=== PATIENT | female | born 1960 | race Two or more races ===

== ENCOUNTER 2024-12-16 22:05 | Emergency (ER) | payer OTHER ==
[~2024-12-16] VITALS: Ht 165.1 cm; Wt 86.2 kg
[2024-12-16] MEDS ORDERED: TDAP DIPH,PERTUSS,TET VAC/PF 0.5 ML DISP.SYRIN IM ONE (23:05)
[2024-12-16] MEDS: TDAP DIPH,PERTUSS,TET VAC/PF 0.5 ML DISP.SYRIN IM ONE (23:07)
[2024-12-16] MEDS ORDERED: NEOMY/BACITRA/POLYMYXIN B OINT UD PACKET TP ONE (23:49)
[2024-12-16] MEDS ORDERED: ONDANSETRON ODT 4 MG TAB.RAPDIS ONE (23:50)
[2024-12-16] MEDS: NEOMY/BACITRA/POLYMYXIN B OINT UD PACKET TP ONE (23:55)
[2024-12-16] MEDS: ONDANSETRON ODT 4 MG TAB.RAPDIS SL ONE (23:55)
[2024-12-17 00:23] VITALS: BP 120/70; TEMP 97.8; O2SAT 98
== END 2024-12-16 23:59 | disposition home or self-care (01) ==
LOC: ER 22:05
DX: S01.03XA Puncture wound without foreign body of scalp, initial encounter (principal); Z79.01 Long term (current) use of anticoagulants; Z88.8 Allergy status to other drugs, medicaments and biological substances; Z91.041 Radiographic dye allergy status; W01.0XXA Fall on same level from slipping, tripping and stumbling without subsequent striking against object, initial encounter; Y93.01 Activity, walking, marching and hiking; Y92.89 Other specified places as the place of occurrence of the external cause; Y99.8 Other external cause status
CPT/HCPCS: 70450; 72125; 90715; A4606; A4663; Q0162